=== PATIENT | female | born 1955 | race Native Hawaiian/Other Pacific Islander ===

== ENCOUNTER 2022-07-08 11:28 | Outpatient (CLI) | payer OTHER ==
[2022-07-08 12:07] LABS: POTASSIUM 3.2 mmol/L (3.6-5.2)
== END 2022-07-08 21:19 | disposition home or self-care (01) ==
LOC: LABW 11:28
PROVIDERS: ATTEND Internal Medicine Cardiovascular Disease
DX: Z79.899 Other long term (current) drug therapy (principal); R06.09 Other forms of dyspnea
CPT/HCPCS: 36415; 80048; 83880